=== PATIENT | female | born 1935 | race Two or more races ===

== ENCOUNTER 2017-06-22 16:55 | Observation (INO) | payer MEDICARE, MEDICAID ==
[~2017-06-22] VITALS: Ht 165.1 cm; Wt 61.7 kg
[2017-06-22] MEDS ORDERED: NS 500ML ONE (17:07)
[2017-06-22] MEDS ORDERED: Tubing Blood Filter IV ONE (17:07)
[2017-06-22 17:30] VITALS: BP 133/70
[2017-06-22] MEDS ORDERED: Bisacodyl EC 5mg tab ORAL ONE (19:00)
[2017-06-22 19:02] LABS: HEMATOCRIT 16.9 % (37.0-47.0); MEAN CORPUSCULAR VOLUME 59 FL (80-99); PLATELET COUNT 371 K/UL (150-450); RED BLOOD COUNT 2.84 M/UL (4.20-5.40); RED CELL DISTRIBUTION WIDTH 15.7 % (11.6-14.8); WHITE BLOOD COUNT 6.1 K/UL (4.8-10.8)
[2017-06-22 19:09] LABS: ANION GAP 7 mmol/L (5-15); BLOOD UREA NITROGEN 21 mg/dL (7-18); CALCIUM 8.5 MG/DL (8.5-10.1); CARBON DIOXIDE 27 MMOL/L (21-32); CHLORIDE 105 MMOL/L (98-107); CREATININE 0.5 MG/DL (0.55-1.30); SODIUM 139 MMOL/L (136-145)
[2017-06-22 19:13] LABS: HEMOGLOBIN 4.5 G/DL (12.0-16.0)
[2017-06-22 19:21] LABS: ALANINE AMINOTRANSFERASE 23 U/L (12-78); ALBUMIN 3.2 G/DL (3.4-5.0); ALKALINE PHOSPHATASE 56 U/L (46-116); ASPARTATE AMINO TRANSFERASE 21 U/L (15-37); BILIRUBIN,DIRECT 0.1 MG/DL (0.0-0.3); BILIRUBIN,TOTAL 0.2 MG/DL (0.2-1.0)
[2017-06-22 20:00] VITALS: BP 123/72
[2017-06-23] VITALS: BP 133/65
[2017-06-23] MEDS ORDERED: Nulytely 4L ORAL ONE (08:00)
[2017-06-23] MEDS ORDERED: Sorbitol Solution UD 30ml ORAL ONE (08:00)
[2017-06-23 08:13] VITALS: BP 153/88
[2017-06-23] MEDS: Imdur 30mg tab ORAL SCH (09:50)
[2017-06-23 11:45] VITALS: BP 173/78
[2017-06-23] MEDS ORDERED: Bisacodyl EC 5mg tab ORAL ONE (12:00)
[2017-06-23 15:40] VITALS: BP 147/79
--- NOTE | 2017-06-23 16:23 | Cardiology Report ---
APPROVED REPORT EKG Measurement Heart [id number] Normal sinus rhythm Normal ECG
[2017-06-23 19:54] LABS: HEMATOCRIT 24.9 % (37.0-47.0); HEMOGLOBIN 7.6 G/DL (12.0-16.0); MEAN CORPUSCULAR VOLUME 66 FL (80-99); PLATELET COUNT 335 K/UL (150-450); RED BLOOD COUNT 3.76 M/UL (4.20-5.40); RED CELL DISTRIBUTION WIDTH 23.7 % (11.6-14.8)
[2017-06-23 20:00] VITALS: BP 143/85
--- NOTE | 2017-06-23 20:28 | General Progress Note ---
Assessment/Plan Assessment/Plan GI CONSULT Dictated EGD/Colon at 0700 Thank you Iam Floyd MD Subjective Allergies: Coded Allergies: No Known Allergies (Unverified , 06/22/17) Objective Last 24 Hour Vital Signs Date Time Temp Pulse Resp B/P (MAP) Pulse Ox O2 Delivery O2 Flow Rate FiO2 06/23/17 15:40 97.9 69 18 147/79 99 97.9 06/23/17 11:45 96.4 64 18 173/78 98 96.4 06/23/17 09:50 153/88 06/23/17 08:13 98.1 77 17 153/88 98.1 06/23/17 00:00 98.2 75 16 133/65 96 98.2 Intake and Output 06/22/17 06/23/17 19:00 07:00 Intake Total 700 ml Balance 700 ml Blood Product 700 ml # Voids 1 Laboratory Tests 06/23/17 19:40: White Blood Count 6.0, Red Blood Count 3.76L, Hemoglobin 7.6#L, Hematocrit 24.9# L, Mean Corpuscular Volume 66#L, Mean Corpuscular Hemoglobin 20.3L, Mean Corpuscular Hemoglobin Concent 30.7L, Red Cell Distribution Width 23.7H, Platelet Count 335, Mean Platelet Volume 5.6L, Neutrophils (%) (Auto) , Lymphocytes (%) (Auto) , Monocytes (%) (Auto) , Eosinophils (%) (Auto) , Basophils (%) (Auto) , Neutrophils % (Manual) [Pending], Lymphocytes % (Manual) [Pending], Platelet Estimate [Pending], Platelet Morphology [Pending] Height (Feet): 5 Height (Inches): 1.00 Weight (Pounds): 136 IAM FLOYD Jun 23, 2017 20:27
[2017-06-23] MEDS ORDERED: Iron Sucrose 100 MG in NS 55 ML IV SCH (22:00)
[2017-06-24] VITALS (10 sets, daily range): BP systolic 116–150; BP diastolic 57–82
--- NOTE | 2017-06-24 00:30 | Consultation ---
DATE OF CONSULTATION: 06/23/2017 GASTROENTEROLOGY CONSULTATION CONSULTING PHYSICIAN: Iam Floyd M.D. REFERRING PHYSICIAN: Moe Coley M.D. CHIEF COMPLAINT: I was asked to see this patient for evaluation of anemia. HISTORY OF PRESENT ILLNESS: The patient is a pleasant 81-year-old woman who was referred to the hospital due to severe symptomatic anemia. The patient had a hemoglobin of 4.5 with MCV of 59. She is being transfused and her blood levels are better today. She denies any abdominal pain, nausea, vomiting, diarrhea, constipation, heartburn, hematochezia, melena, or other gastrointestinal symptomatology. She has not had an endoscopy or colonoscopy for evaluation. PAST MEDICAL HISTORY: Otherwise unremarkable per the patient, although medication list includes Imdur. MEDICATIONS: See the chart list for details. ALLERGIES: None. FAMILY HISTORY: Negative for gastrointestinal malignancies. SOCIAL HISTORY: The patient does not smoke or drink alcohol. REVIEW OF SYSTEMS: Otherwise negative. PHYSICAL EXAMINATION: GENERAL: Pleasant woman, seen in her room. HEENT: Normocephalic and atraumatic. Sclerae anicteric. Oropharynx clear. NECK: Supple. CHEST: Clear to auscultation. CARDIOVASCULAR: Revealed regular rate. ABDOMEN: Soft. Good bowel sounds. EXTREMITIES: Revealed no edema. NEUROLOGIC: Nonfocal. LABORATORY AND DIAGNOSTIC DATA: Laboratory data were noted. ASSESSMENT: This patient presents with severe microcytic anemia without any significant gastrointestinal tract symptomatology. Differential diagnosis for this type of presentation would typically include silent causes for chronic blood loss or inflammation of the GI tract versus a large hiatal hernia of the stomach. She is to be evaluated with lower and upper endoscopy. For the time being, I would transfuse the patient and give iron infusions as well. Indications, risks, alternatives, and possible complications of endoscopy and colonoscopy were explained to the patient and informed consent was obtained. RECOMMENDATIONS: 1. Clear liquid diet. 2. GI tract preparation. 3. Iron infusions. 4. Transfuse as needed. 5. Endoscopy and colonoscopy tomorrow. Thank you for asking me to participate in the care of this patient. Iam Floyd M.D. DR: EDENILSON JOB#: [id number] CC: CHANG
--- NOTE | 2017-06-24 01:45 | Progress Note ---
DATE: 06/23/2017 INTERNAL MEDICINE PROGRESS NOTE SUBJECTIVE: The patient has not had any chest pain or shortness of breath. She is status post 2 units packed red blood cells. Her hemoglobin level on admission was 4.5, today it is 7.6. OBJECTIVE: VITAL SIGNS: Blood pressure 135/60 range to 170/90, heart rate 78, respiratory rate 18 and she is afebrile. LUNGS: Clear. CARDIAC: Regular. Normal S1 and S2 with a 1/6 systolic murmur at base. ABDOMEN: Soft and nontender. No masses. No ascites. EXTREMITIES: With nonpitting dependent edema. IMPRESSION: 1. Microcytic anemia. 2. Severe iron deficiency. 3. Mild protein-calorie malnutrition. 4. Possible chronic GI bleeding. 5. Atherosclerotic and hypertensive heart disease. PLAN: Bowel prep for colonoscopy. Intravenous iron. Continued observation. Nasal oxygen. Serial hemoglobin. Continue to hold aspirin and avoid all nonsteroidal drugs as well as anticoagulants. DVT prophylaxis with SCDs. Follow up results of CEA level. Moe Coley M.D. DR: EDEL JOB#: [id number] CC:
--- NOTE | 2017-06-24 02:15 | History and Physical Report ---
DATE OF ADMISSION: 06/22/2017 REASON FOR ADMISSION: Severe anemia. 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 She was evaluated for weakness and some decreasing exercise capacity due to shortness of breath and was noted to have hemoglobin level around 5. The test was repeated and hemoglobin of 4.8 was obtained with severe microcytic indices. Associated iron panel revealed a total iron level of only 5 with a saturation estimate of 1%. The patient was sent to the hospital for observation and transfusions as well as assessment for further bleeding. PAST MEDICAL HISTORY: Atherosclerotic cardiovascular disease, chronic stable angina, osteoarthritis, degenerative disk disease, hypertension, hyperlipidemia, and peripheral neuropathy. MEDICATIONS: Prior to admission, reviewed and reconciled. ALLERGIES: None known. SOCIAL HISTORY: No record of smoking, alcohol, or substance abuse. FAMILY HISTORY: Noncontributory. REVIEW OF SYSTEMS: She does take a daily aspirin tablet. She takes an occasional nonsteroidal drugs for arthritic pain. She has noted occasional dark black stools for several months. She has not had any exertional chest pain, but has noted shortness of breath with decreased activity as well as some leg swelling. There is no history of diabetes or thyroid disorder. No history of seizure or stroke. She is on anti-lipid drugs. Her most recent echocardiogram revealed normal ejection fraction, concentric hypertrophy, and mild degenerative valve disease. There is no history of asthma or blood clotting in the legs. There is no known history of colon cancer or peptic ulcer disease. PHYSICAL EXAMINATION: GENERAL: Appears well for her age, in no acute distress. VITAL SIGNS: Blood pressure 133/70, heart rate 84, respiratory rate 18, and afebrile. HEENT: Normocephalic and atraumatic. Conjunctiva pallor. Oropharynx clear. NECK: Supple. Jugular venous pressure normal. LUNGS: Clear. BREASTS: Without discrete masses. CARDIAC: Regular rhythm and rate. Normal S1, S2 with a 1/6 systolic murmur at base. ABDOMEN: Soft, nontender. No guarding, rebound, or masses. EXTREMITIES: With 1+ nonpitting edema. NEUROLOGIC: Nonfocal. LABORATORY DATA: White count 6.1, hemoglobin 4.5, and MCV 59. BUN 21, creatinine 0.5, bicarbonate 27, sodium 139, and potassium 4.0. Albumin is 3.2. TSH is 3.3. IMPRESSION: 1. Severe microcytic anemia. 2. Severe iron deficiency. 3. Possible gastrointestinal bleeding. 4. Atherosclerotic cardiovascular disease with stable angina. 5. Hypertensive heart disease with controlled blood pressure at present. 6. Osteoarthritis. 7. Dyspnea, likely due to severe anemia. PLAN: 1. Transfuse two units of packed red blood cells to hemoglobin level above 7.5. 2. Stool occult blood test. 3. IV iron. 4. Gastrointestinal evaluation for possible panendoscopy. 5. Hold aspirin and nonsteroidal drugs. Moe Coley M.D. DR: Rc JOB#: [id number] CC:
[2017-06-24] MEDS ORDERED: DiphenhydrAMINE 50mg/ml Inj IVP PRN (07:00)
[2017-06-24] MEDS ORDERED: Propofol 200mg/20ml IV ONE (07:00)
[2017-06-24] MEDS ORDERED: Atropine Inj 1mg/10ml Syr IV PRN (07:00)
[2017-06-24] MEDS ORDERED: Midazolam 2mg/2ml Inj IVP PRN (07:00)
[2017-06-24] MEDS ORDERED: fentaNYL 100 mcg/2 mL IV PRN (07:00)
[2017-06-24] MEDS ORDERED: Glycopyrrolate 0.2mg/ml 1ml Vial ONE (07:00)
[2017-06-24] MEDS ORDERED: Lidocaine 1% MPF 10mg/ml 5ml ONE (07:00)
--- NOTE | 2017-06-24 07:00 | Anethesia Preoperative Eval ---
Anesthesia Pre-op PMH/ROS General Date of Evaluation: Jun 24, 2017 Time of Evaluation: 06:54 Anesthesiologist: moe ASA Score: ASA 3 Mallampati Score Class I : Soft palate, uvula, fauces, pillars visible Class II: Soft palate, uvula, fauces visible Class III: Soft palate, base of uvula visible Class IV: Only hard plate visible Mallampati Classification: Class II Surgeon: ghazala Diagnosis: severe anemia Surgical Procedure: egd/colonoscopy Anesthesia History: none Family History: no anesthesia problems Allergies: Coded Allergies: No Known Allergies (Unverified , 06/22/17) Medications: see eMAR Past Medical History Gastrointestinal/Genitourinary: Reports: GERD Anesthesia Pre-op Phys. Exam Physician Exam Last Vital Signs Date Time Temp Pulse Resp B/P (MAP) Pulse Ox O2 Delivery O2 Flow Rate FiO2 06/24/17 04:00 98.2 66 15 143/66 95 98.2 Constitutional: NAD Neurologic: CN 2-12 intact Cardiovascular: RRR Respiratory: CTA Gastrointestinal: S/NT/ND Airway Exam Mallampati Score: Class II MO: full Neck: short TMD: 2fb ROM: limited Teeth: intact Anesthesia Pre-op A/P Labs Hematology Test 06/23/17 19:40 White Blood Count 6.0 K/UL (4.8-10.8) Red Blood Count 3.76 M/UL (4.20-5.40) L Hemoglobin 7.6 G/DL (12.0-16.0) #L Hematocrit 24.9 % (37.0-47.0) #L Mean Corpuscular Volume 66 FL (80-99) #L Mean Corpuscular Hemoglobin 20.3 PG (27.0-31.0) L Mean Corpuscular Hemoglobin Concent 30.7 G/DL (32.0-36.0) L Red Cell Distribution Width 23.7 % (11.6-14.8) H Platelet Count 335 K/UL (150-450) Mean Platelet Volume 5.6 FL (6.5-10.1) L Neutrophils (%) (Auto) % (45.0-75.0) Lymphocytes (%) (Auto) % (20.0-45.0) Monocytes (%) (Auto) % (1.0-10.0) Eosinophils (%) (Auto) % (0.0-3.0) Basophils (%) (Auto) % (0.0-2.0) Differential Total Cells Counted 100 Neutrophils % (Manual) 43 % (45-75) L Lymphocytes % (Manual) 36 % (20-45) Monocytes % (Manual) 9 % (1-10) Eosinophils % (Manual) 8 % (0-3) H Basophils % (Manual) 3 % (0-2) H Band Neutrophils 1 % (0-8) Platelet Estimate Adequate Platelet Morphology Normal Polychromasia 1+ Hypochromasia 3+ Anisocytosis 3+ Microcytosis 3+ Studies Pre-op Studies: EKG - nsr Risk Assessment & Plan Assessment: asa3 Plan: mac Status Change Before Surgery: No Pre-Antibiotics Drug: SARAI Arzola Jun 24, 2017 07:00
[2017-06-24] MEDS ORDERED: NS 500ML IV ONE (07:01)
--- NOTE | 2017-06-24 07:04 | Pre-Procedure Note/Attestation ---
Pre-Procedure Note/Attestation Complete Prior to Procedure Planned Procedure: not applicable Procedure Narrative: egd/colon Indications for Procedure Pre-Operative Diagnosis: anemia Attestation I attest that I discussed the nature of the procedure; its benefits; risks and complications; and alternatives (and the risks and benefits of such alternatives ), prior to the procedure, with the patient (or the patient's legal airline security representative). I attest that, if there was a reasonable possibility of needing a blood transfusion, the patient (or the patient's legal airline security representative) was given the [facility] standardized written summary, pursuant to the Eric Captiva Blood Safety Act ([place] Health and Safety Code # 1645, as amended). I attest that I re-evaluated the patient just prior to the surgery and that there has been no change in the patient's H&P, except as documented below: STACEY PANTOJA Jun 24, 2017 07:04
--- NOTE | 2017-06-24 08:06 | General Progress Note ---
Assessment/Plan Assessment/Plan Assessment - Severe compensated microcytic anemia Recommendations - EGD/Colon today FINDINGS EGD: 10 cm Hiatal hernia, possible cause for anemia Colon: - mod sigmoid diverticulosis - few shallow apthous erosions in terminal ileum, biopsied (another possible cause for anemia) Recommendations: - resume po - IV Fe --> PO Fe after d/c - d/c planning - Outpatient GI follow up. Subjective Allergies: Coded Allergies: No Known Allergies (Unverified , 06/22/17) Subjective Feels OK (+) BM with prep NPO for EGD/Colon Objective Last 24 Hour Vital Signs Date Time Temp Pulse Resp B/P (MAP) Pulse Ox O2 Delivery O2 Flow Rate FiO2 06/24/17 04:00 98.2 66 15 143/66 95 98.2 06/24/17 00:00 97.7 63 15 128/67 95 97.7 06/23/17 20:00 98.0 75 16 143/85 95 98.0 06/23/17 15:40 97.9 69 18 147/79 99 97.9 06/23/17 11:45 96.4 64 18 173/78 98 96.4 06/23/17 09:50 153/88 06/23/17 08:13 98.1 77 17 153/88 98.1 Intake and Output 06/23/17 06/24/17 19:00 07:00 Intake Total 1220 ml 60 ml Balance 1220 ml 60 ml Intake Oral 1220 ml IV Total 60 ml # Voids 2 3 # Bowel Movements 3 1 Laboratory Tests 06/23/17 19:40: White Blood Count 6.0, Red Blood Count 3.76L, Hemoglobin 7.6#L, Hematocrit 24.9# L, Mean Corpuscular Volume 66#L, Mean Corpuscular Hemoglobin 20.3L, Mean Corpuscular Hemoglobin Concent 30.7L, Red Cell Distribution Width 23.7H, Platelet Count 335, Mean Platelet Volume 5.6L, Neutrophils (%) (Auto) , Lymphocytes (%) (Auto) , Monocytes (%) (Auto) , Eosinophils (%) (Auto) , Basophils (%) (Auto) , Differential Total Cells Counted 100, Neutrophils % ( Manual) 43L, Lymphocytes % (Manual) 36, Monocytes % (Manual) 9, Eosinophils % ( Manual) 8H, Basophils % (Manual) 3H, Band Neutrophils 1, Platelet Estimate Adequate, Platelet Morphology Normal, Polychromasia 1+, Hypochromasia 3+, Anisocytosis 3+, Microcytosis 3+ Height (Feet): 5 Height (Inches): 5.00 Weight (Pounds): 136 Objective WDWN NCAT supple CTA RRR Soft ND NT no edema non focal STACEY PANTOJA Jun 24, 2017 08:06
[2017-06-24] MEDS: Imdur 30mg tab ORAL SCH (09:09)
--- NOTE | 2017-06-24 09:10 | Immediate Post-Op Evaluation ---
Immediate Post-Op Evalulation Immediate Post-Op Evalulation Procedure: egd/colonoscopy Date of Evaluation: Jun 24, 2017 Time of Evaluation: 08:17 IV Fluids: 500ml Blood Products: none Estimated Blood Loss: negligible Blood Pressure Systolic: 130 Blood Pressure Diastolic: 67 Pulse Rate: 64 Respiratory Rate: 18 O2 Sat by Pulse Oximetry: 100 Temperature (Fahrenheit): 98.2 Pain Score (1-10): 0 Nausea: No Vomiting: No Complications none Patient Status: awake, reacts, patent Hydration Status: adequate Drug: SARAI Arzola Jun 24, 2017 09:10
--- NOTE | 2017-06-24 09:36 | Endoscopy Procedure Note ---
Endoscopy Procedure Note General Indication for Procedure: anemia Procedures Performed: EGD, colonoscopy Operative Findings/Diagnosis: see prog note Specimen: yes Pt Tolerated Procedure Well: Yes Estimated Blood Loss: none Anesthesia Anesthesiologist: Dr Branden pulido Anesthesia: MAC Medications Medication Given: see anesthesia record Inserted Devices Implant(s) used?: No Quality Quality of Bowel Preparation: Excellent GI Core Measures 50 yrs or older w/o bx or poly: Not Applicable 10yrs. F/U not recommended: Not Applicable If not recommended, why?: STACEY PANTOJA Jun 24, 2017 09:35
--- NOTE | 2017-06-24 09:39 | Brief Operative Note ---
Immediate Post Operative Note Operative Note Chief Complaint: anemia Pre-op Diagnosis: anemia Procedure: e/c Post-op Diagnosis: see notes Surgeon: ghazala Anesthesiologist: Branden lowe Anesthesia: moderate sedation Specimen: yes Complications: none Condition: stable Fluids: recorded Estimated Blood Loss: none Drains: none Implant(s) used?: No STACEY PANTOJA Jun 24, 2017 09:39
--- NOTE | 2017-06-24 13:15 | 48 Hour Post Anesthesia Eval ---
Post Anesthesia Evaluation Procedure: egd/colonoscopy Date of Evaluation: Jun 24, 2017 Time of Evaluation: 08:19 Blood Pressure Systolic: 133 0: 66 Pulse Rate: 66 Respiratory Rate: 18 Temperature (Fahrenheit): 98.2 O2 Sat by Pulse Oximetry: 100 Airway: patent Nausea: No Vomiting: No Pain Intensity: 0 Hydration Status: adequate Cardiopulmonary Status: stable Mental Status/LOC: patient returned to baseline Post-Anesthesia Complications: none Follow-up care needed: N/A SARAI NOEL Jun 24, 2017 13:15
[2017-06-24] MEDS ORDERED: Tubing IV Secondary IV ONE (19:29)
--- NOTE | 2017-06-25 03:45 | Progress Note ---
DATE: 06/24/2017 CARDIOLOGY AND INTERNAL MEDICINE PROGRESS NOTE SUBJECTIVE: The patient is status post panendoscopy. Large hiatal hernia noted as well as erosions in the small bowel. Biopsies were taken. No active bleeding noted. OBJECTIVE: VITAL SIGNS: Blood pressure is 116/73, pulse 63, respiratory rate 18, and oxygen saturation 95% room air. LUNGS: Clear. CARDIAC: Regular. ABDOMEN: Slightly distended, but soft and nontender. EXTREMITIES: No edema. NEUROLOGIC: Nonfocal. IMPRESSION: 1. Severe iron deficiency with anemia, status post 2 units of packed red blood cells with no signs of active bleeding at this time. 2. Small bowel erosions of unclear significance. 3. Hiatal hernia, asymptomatic. 4. Atherosclerotic cardiovascular disease with stable angina. PLAN: Continue iron replacement transitioning from IV to oral route upon discharge. Follow up biopsy results. Continue to monitor stool occult blood studies as outpatient and hemoglobin levels. Moe Coley M.D. DR: Rc JOB#: [id number] CC:
--- NOTE | 2017-06-25 05:45 | Procedure Note ---
DATE OF PROCEDURE: 06/24/2017 PROCEDURE: Upper gastrointestinal endoscopy with biopsy as well as colonoscopy with biopsy. SURGEON: Iam Floyd M.D. ANESTHESIA: Please see the separate anesthesiologist notes for details. PRE-ENDOSCOPIC DIAGNOSIS: Anemia. POST-ENDOSCOPIC DIAGNOSES: 1. A 10 cm hiatal hernia. 2. Status post random biopsies of the duodenum and the stomach. 3. No evidence of colonic polyps or masses. 4. Multiple shallow and small terminal ileum erosions were identified up to about 15 cm and these were biopsied. DESCRIPTION OF PROCEDURE: The procedure, its risks, indications, alternatives, and possible complications were explained to the patient and informed consent was obtained. The patient was then sedated. A diagnostic upper endoscope was introduced into the oropharynx and advanced to the duodenum. The endoscope was then gradually withdrawn and the mucosa examined carefully. The colonoscope was introduced into the rectum and advanced to about 15 cm into the terminal ileum. The colonoscope was then gradually withdrawn and the mucosa examined carefully. Examination of the upper and lower gastrointestinal tract revealed the findings listed above. Biopsies were sent to pathology for review. No cancers or masses were identified. The colonoscope was removed. The patient was sent to recovery in good condition. COMPLICATIONS: None. ASSESSMENT: This examination was notable for 10 cm hiatal hernia and some erosions in the terminal ileum, both of which could explain the patient's significant iron-deficiency anemia. The former is associated with longstanding blood loss from Akbar ulcers and can typically cause longstanding anemia. The latter may be a form of inflammatory bowel disease, which will have to be further investigated in this patient. For the time being, the patient can be discharged and given iron supplementation. She will follow up as an outpatient with results and if Helicobacter pylori is positive, this should be treated. RECOMMENDATIONS: Per above discussion and per orders written in the chart. Thank you for allowing me to participate in the care of this patient. Iam Floyd M.D. DR: EDENILSON JOB#: [id number] CC: CHANG
--- NOTE | 2017-07-02 17:42 | Discharge Summary ---
Discharge Summary Discharge Summary Discharge Summary DATE OF ADMISSION: 06/22/2017 DATE OF DISCHARGE: 06/24/2017 CONSULTANTS:Dr. 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 Total iron of 5 and saturation of 1%. She was sent to the hospital for observation and for blood transfusion. She received 2 units packed RBC blood transfusion. She underwent GI evaluation. On 06/24/2017 she underwent endoscopy by Dr. Floyd. Findings showed a 10 cm had total hernia, there was no evidence of colonic polyp or mass, there was multiple shallow and small terminal ileum erosions. Pathology results showed benign bowel mucosa, negative for H. pylori. There was no sign of active bleed. Diet was advanced. She was eventually discharged home. FINAL DIAGNOSES: Severe iron deficiency anemia status post 2 units packed RBC blood transfusion with no active signs of bleeding Small bowel erosion Hiatal hernia asymptomatic Atherosclerotic cardiovascular disease with stable angina status post EGD and colonoscopy DISPOSITION: Patient was discharged home DISCHARGE INSTRUCTIONS: Follow up in a week. I have been assigned to dictate discharge summary on this account, and I was not involved in the patient's management. Elzbieta Emmanuel NP Jul 02, 2017 17:42
== END 2017-06-24 19:30 | disposition home or self-care (01) ==
LOC: 4W 17:06
DX: D50.9 Iron deficiency anemia, unspecified (principal); K44.9 Diaphragmatic hernia without obstruction or gangrene; K29.50 Unspecified chronic gastritis without bleeding; I25.119 Atherosclerotic heart disease of native coronary artery with unspecified angina pectoris; I11.9 Hypertensive heart disease without heart failure; M19.90 Unspecified osteoarthritis, unspecified site; K21.9 Gastro-esophageal reflux disease without esophagitis; E44.1 Mild protein-calorie malnutrition; K57.30 Diverticulosis of large intestine without perforation or abscess without bleeding
CPT/HCPCS: 36415 ×2; 43239; 45380; 80048; 80076; 82378; 84443; 85007 ×2; 85025 ×2; 86850; 86900; 86901; 86920; 93005; G0378 ×2; J1756; J2704; J7040 ×2; P9016 ×2; 94003; 94150

== ENCOUNTER → 2017-07-13 | Outpatient (CLI) | payer MEDICARE, OTHER ==
--- NOTE | 2017-07-13 17:44 | Diagnostic Imaging Report ---
Indication: COUGH Technique: XRAY Chest 2v Comparison: None Findings: Heart size within normal limits. Atherosclerotic calcifications noted in the aorta. There is a moderate to large size hiatal hernia with a gas bubble projecting just posterior to the heart. There is no focal airspace consolidation to suggest pneumonia. No pleural effusion or pneumothorax. There is osteopenia and mild degenerative change of the spine. No acute osseous abnormality is seen. IMPRESSION: Moderate to large hiatal hernia. No focal airspace consolidation, pleural effusion or pneumothorax.
== END | disposition home or self-care (01) ==
LOC: RAD 11:31
DX: R05 Cough (principal); K44.9 Diaphragmatic hernia without obstruction or gangrene; M85.80 Other specified disorders of bone density and structure, unspecified site
CPT/HCPCS: 71046

== ENCOUNTER 2018-04-14 15:07 | Outpatient (CLI) | payer MEDICARE, MEDICAID ==
--- NOTE | 2018-04-14 15:53 | Diagnostic Imaging Report ---
Indication: Headache Technique: Contiguous 5 mm thick transaxial imaging of the head obtained in a Siemens Sensation [address] scanner. Soft tissue and bone windows generated. Automatic Exposure Control was utilized. Total Dose length Product (DLP): 1344.[address] Dose Index Volume (CTDIvol): 70.38 mGy Comparison: none Findings: There is moderate prominence of the ventricles, basal cisterns, and cerebral sulci consistent with atrophy. Moderate, nonspecific, white matter hypoattenuation is noted throughout the brain consistent with chronic small vessel disease. There is no midline shift, edema, acute hemorrhage, mass effect, or abnormal extra-axial fluid collections. There is a less than 1 cm lucent defect within the left frontal calvarium, nonspecific in nature. This would probably not be visible by bone scan. Consider further evaluation, clinical correlation and recommend follow-up. Impression: No acute intracranial bleed, mass effect or edema. Moderate atrophy of the brain. Evidence of chronic small vessel disease involving white matter tracts. Small lucent defect left frontal calvarium, nonspecific. Please correlate clinically. Further evaluation may be needed. The CT scanner at [facility] is accredited by the [employer] and the scans are performed using dose optimization techniques as appropriate to a performed exam including Automatic Exposure control.
== END 2018-04-14 17:07 | disposition home or self-care (01) ==
LOC: CAT 15:07
DX: R51 Headache (principal); R41.82 Altered mental status, unspecified
CPT/HCPCS: 70450

== ENCOUNTER 2018-10-17 14:47 | Inpatient (IN) | payer MEDICARE, OTHER ==
[~2018-10-17] VITALS: Ht 154.9 cm; Wt 56.7 kg
--- NOTE | 2018-10-17 15:10 | NUR ---
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 patient is alert awake x4 ambulatory with assistance. patient placed on head of precision targeting.
[2018-10-17] MEDS ORDERED: ISOSORBIDE MONO60 M1 PO (15:21)
[2018-10-17] MEDS ORDERED: VITAMIN D1000 UNI1 ORAL (15:21)
[2018-10-17] MEDS ORDERED: VITAMIN C500 M1 ORAL (15:21)
[2018-10-17] MEDS ORDERED: DONEPEZIL HCL10 M2 ORAL (15:21)
[2018-10-17] MEDS ORDERED: GINKGO BILOBA120 M1 PO (15:21)
[2018-10-17] MEDS ORDERED: IRON325 M1 PO (15:21)
[2018-10-17] MEDS ORDERED: GLUCOSAMINE CH1 EAC8 PO (15:21)
[2018-10-17] MEDS ORDERED: OYSTER SHELL 51 EAC1 PO (15:21)
[2018-10-17 15:27] VITALS: BP 132/65
--- NOTE | 2018-10-17 15:43 | Emergency Room Report ---
History of Present Illness General Chief Complaint: Headache Source: Patient Present Illness HPI Disclaimer: Please note that this report is being documented using DRAGON technology. This can lead to erroneous entry secondary to incorrect interpretation by the dictating instrument. HPI: 82-year-old Primarily Estonian-speaking female with a history of hypertension, hyperlipidemia, osteoarthritis and stable angina presented for evaluation of headache, double vision and lightheadedness. Symptoms began abruptly this morning with a sudden headache over the right temporal and occipital region. She noted double vision and lightheadedness. There was no head injury or loss of consciousness. She does not take anticoagulants. Headache has persisted throughout the day as her is her lightheadedness. Double vision waxes and wanes. No prior history of stroke or intracranial hemorrhage. She was in her usual state of health when she woke up this morning. She denies any recent fever, chills, neck or back pain, rash, chest pain, shortness of breath, abdominal pain, vomiting, diarrhea, dysuria, hematuria or other change in her health. PMH: Hypertension, hyperlipidemia, stable angina PSH: Denies Allergies: Denies Social Hx: Denies tobacco, alcohol or drug use Allergies: Coded Allergies: No Known Allergies (Unverified , 06/22/17) Nursing Documentation-PMH Past Medical History: No Stated History Review of Systems All Other Systems: negative except mentioned in HPI Physical Exam Vital Signs Date Time Temp Pulse Resp B/P (MAP) Pulse Ox O2 Delivery O2 Flow Rate FiO2 10/17/18 15:04 98.1 50 17 147/74 (98) 98 Room Air General: Awake and alert, no acute distress HEENT: NC/AT. EOMI. PERRLA. Pupils 4 mm and reactive. Visual hightower are full. Hearing is diminished bilaterally. Facial expressions are symmetrical. Neck: Supple, trachea midline Chest Wall: No tenderness, no deformity Cardiovascular: Bradycardic, lowest heart rate 40 bpm.. S1 and S2 normal. No murmur appreciated Resp: Normal work of breathing. No cough, wheezing or crackles appreciated Abdomen: Abdomen is soft, nondistended. Nontender Skin: Intact. No abrasions, laceration or rash over the exposed skin MSK: Normal tone and bulk. Moving all extremities. No obvious deformity. Neuro: Awake and alert. Mentating appropriately. Facial depressions are symmetrical. Moving all extremities. No ataxia. Strength is 5/5 in the upper and lower extremities. Good attention, concentration. No dysarthria. No aphasia. Medical Decision Making Diagnostic Impression: Primary Impression: Bradycardia with 31-40 beats per minute Additional Impression: Headache ER Course 82-year-old female presents for evaluation of sudden onset headache, double vision and lightheadedness this morning. Her symptoms regarding her headache appear to be improving however states it was sudden and severe this morning but is slowly gotten better throughout the day. She has intermittent blurred vision and lightheadedness. She appears to be very bradycardic with the lowest reported heart rate in the mid 30s. No prior history of bradycardia. She is denying any chest pain, recent illness or other change in her health aside from her headache and visual changes and lightheadedness today. We will start broad work-up with head CT, EKG, labs including coagulation studies. Vital signs aside from the bradycardia are within normal limits. EKG Diagnostic Results EKG Time: 15:38 Rate: bradycardiac Rhythm: NSR Other Impression Sinus bradycardia, normal intervals, normal axis, no acute ischemic changes. Rhythm Strip Diag. Results Rhythm Strip Time: 15:38 EP Interpretation: yes Rate: 40s Other Impression Sinus bradycardia Chest X-Ray Diagnostic Results Chest X-Ray Diagnostic Results : # of Views/Limited/Complete: 1 View Indication: Other - Bradycardia Interpretation: no consolidation, no effusion, no pneumothorax Impression: No acute disease Electronically Signed by: Electronically signed by Dr. Connie Rodriguez CT/MRI/US Diagnostic Results CT/MRI/US Diagnostic Results : Impression [facility] Patient: LENNY SANTAMARIA (Female) Age: 82 MR #: [id number] Status: ER Date: 10/17/18 16:01 Slices: 0 History: PAIN Priors: Tech: Exam request generated by [employer] interface Exams: CT HEAD Without Contrast Referring Magdy: TATYANA^CONNIE Ordering Phy: Connie Rodriguez MD Contrast: Accession Numbers: [id number] Preliminary Findings Only See Final Report For Complete Findings CT HEAD Without Contrast: No acute intracranial process. Involutional changes with small vessel disease. Dystrophic calcification in the right occipital region. Cataract surgery. Radiologist: aDrryl Loving M.D. Study ready at 16:04 and initial results transmitted at 16:05 Reevaluation Time: 17:07 Last Vital Signs Date Time Temp Pulse Resp B/P (MAP) Pulse Ox O2 Delivery O2 Flow Rate FiO2 10/17/18 15:27 98.1 49 18 132/65 99 Room Air Reevaluation Impression CT scan of the head showed no acute intercranial process. Labs have returned largely within normal limits. The patient became more bradycardic with heart rate in the mid to low 30s. She remains symptomatic and lightheaded. She was given 0.5 mg atropine which increased her heart rate into the 60s. She is currently stable though given her significant bradycardia and symptomatology I believe she is not safe for transfer but will require admission to either telemetry at our facility. Discussed labs and imaging results with patient as well as plan for admission. She understands and agrees with this treatment plan Disposition: ADMITTED INPATIENT Condition: Improved Connie Rodriguez MD Oct 17, 2018 15:43
--- NOTE | 2018-10-17 15:56 | NUR ---
ED Nurse Note: patient came back from CT
--- NOTE | 2018-10-17 16:07 | Diagnostic Imaging Report ---
Indication: Headache Technique: Contiguous 5 mm thick transaxial imaging of the head obtained in a Siemens Sensation [address] scanner. Soft tissue and bone windows generated. Automatic Exposure Control was utilized. Total Dose length Product (DLP): 1347.[address] Dose Index Volume (CTDIvol): 70.38 mGy Comparison: 04/14/2018 Findings: There is mild prominence of the ventricles, basal cisterns, and cerebral sulci consistent with atrophy. Mild, nonspecific, white matter hypoattenuation is noted throughout the brain consistent with chronic small vessel disease. There is no midline shift, edema, acute hemorrhage, mass effect, or abnormal extra-axial fluid collections. Bones are unremarkable. Bilateral lens surgery noted. Impression: No acute intracranial bleed, mass effect or edema. Mild atrophy of the brain. Nonspecific white matter hypoattenuation probably due to chronic small vessel disease. [facility] has communicated the preliminary results to the Emergency Department. Their findings are largely concordant with this report. The CT scanner at [facility] is accredited by the [employer] and the scans are performed using dose optimization techniques as appropriate to a performed exam including Automatic Exposure control.
[2018-10-17 16:17] LABS: BASOPHILS % (AUTO) 1.5 % (0.0-2.0); EOSINOPHILS % (AUTO) 3.5 % (0.0-3.0); HEMATOCRIT 39.5 % (37.0-47.0); HEMOGLOBIN 13.6 G/DL (12.0-16.0); LYMPHOCYTES % (AUTO) 26.3 % (20.0-45.0); MEAN CORPUSCULAR VOLUME 92 FL (80-99); MONOCYTES % (AUTO) 7.3 % (1.0-10.0); NEUTROPHILS % (AUTO) 61.4 % (45.0-75.0); PLATELET COUNT 155 K/UL (150-450); RED BLOOD COUNT 4.32 M/UL (4.20-5.40); RED CELL DISTRIBUTION WIDTH 11.4 % (11.6-14.8); WHITE BLOOD COUNT 5.7 K/UL (4.8-10.8)
--- NOTE | 2018-10-17 16:21 | NUR ---
ED Nurse Note: HR went down to 35/min but asymptomatic. ERMD made aware.
[2018-10-17 16:30] LABS: ANION GAP 6 mmol/L (5-15); BLOOD UREA NITROGEN 16 mg/dL (7-18); CALCIUM 9.5 MG/DL (8.5-10.1); CARBON DIOXIDE 30 MMOL/L (21-32); CHLORIDE 104 MMOL/L (98-107); CREATININE 0.5 MG/DL (0.55-1.30); SODIUM 140 MMOL/L (136-145)
[2018-10-17] MEDS ORDERED: Atropine Inj 1mg/10ml Syr IVP ONE (16:30)
[2018-10-17] MEDS ORDERED: Atropine Sulfate 0.4mg/ml inj 20ML IVP ONE (16:30)
[2018-10-17 16:43] LABS: ALANINE AMINOTRANSFERASE 10 U/L (12-78); ALBUMIN 3.3 G/DL (3.4-5.0); ALKALINE PHOSPHATASE 46 U/L (46-116); ASPARTATE AMINO TRANSFERASE 17 U/L (15-37); BILIRUBIN,TOTAL 0.3 MG/DL (0.2-1.0); CKMB 1.6 NG/ML (0.0-3.6); CREATINE KINASE 71 U/L (26-308)
[2018-10-17 18:08] VITALS: BP 120/67
--- NOTE | 2018-10-17 19:23 | NUR ---
HAND-OFF: Report given to Mamie SALVADOR. patient is stable in bed. her friend by the bedside. Addendum: 10/17/18 at 1925 by DONELLO HAND-OFF: Report given to Inna SALVADOR. patient is stable in bed. her friend by the bedside. .
--- NOTE | 2018-10-17 19:30 | NUR ---
ED Nurse Note: report received from MODETSO Pitts and assumed care.
[2018-10-17 19:45] VITALS: BP 124/63
--- NOTE | 2018-10-17 20:23 | NUR ---
ED Nurse Note: report given to MODESTO Kim.
--- NOTE | 2018-10-17 20:45 | NUR ---
ED Nurse Note: pt transferred to tele, all belongings sent w/ pt w/ completed packet, vss, resp even and unlabored on RA, NSR on grinding room supervisor at this time. care endorsed to MODESTO Kim.
--- NOTE | 2018-10-17 20:48 | NUR ---
NURSE NOTES: Received report from ANDRES Carrasco RN. Patient was transferred to Telemetry unit from ER via [facility] without incident. No signs of acute distress noted; denies pain at this time. AOx4; able to make needs known. Primarily Mexican speaking. Checked IV site; patent and flushed. No erythema, bleeding, or infiltration noted. Patient put on Tele box; sinus rhythm on the monitor (70s). Belongings list checked with transferring RN. Bed at lowest position, brakes on, siderails up x3. Call light within reach. Will continue to monitor.
--- NOTE | 2018-10-17 21:28 | NUR ---
NURSE NOTES: Called Dr. Coley for admission orders. Awaiting callback.
[2018-10-17] MEDS ORDERED: Gadavist 7.5mMol/7.5ml vial IV PRN (23:00)
[2018-10-17] MEDS: Donepezil 10mg tab ORAL SCH (23:39)
[2018-10-17] MEDS: Aspirin Baby 81mg ORAL SCH (23:39)
[2018-10-18] VITALS: BP 108/60
[2018-10-18] MEDS: NS w/KCl 20mEq 1000ml 1,000 ML IV SCH ×2 (00:14→15:28)
--- NOTE | 2018-10-18 01:00 | History and Physical Report ---
DATE OF ADMISSION: 10/17/2018 REASON FOR ADMISSION: Bradycardia. HISTORY OF PRESENT ILLNESS: This is an 82-year-old female who [facility]. She sees me regularly at my office. She presented to the hospital emergency room complaining of double vision, lightheadedness, weakness, and headache. The symptoms began early this morning. There was no head trauma, falls, or loss of consciousness. The patient has not had any seizures or focal weakness. There have been no changes in her medication regimen. PAST MEDICAL HISTORY: Hiatal hernia, iron deficiency, gastritis, chronic kidney disease, cerebrovascular disease with dementia, dementia with confusion, hyperlipidemia, hypertension, and atherosclerotic cardiovascular disease. ALLERGIES: None. MEDICATIONS: Reviewed and reconciled. SOCIAL HISTORY: Negative for smoking, alcohol, or substance abuse. FAMILY HISTORY: Noncontributory. REVIEW OF SYSTEMS: No loss of vision. She is hard of hearing. No shortness of breath. No recent upper respiratory infection. No loss of consciousness. No falls. No chest pain or palpitations. No nausea, vomiting, or abdominal pain. No history of diabetes or thyroid disorder. She had severe iron deficiency anemia and underwent endoscopy last year with findings notable for mild gastritis and hiatal hernia. Her hemoglobin has been stabilized on iron replacement since that time. She does have episodes of confusion at night. PHYSICAL EXAMINATION: VITAL SIGNS: Afebrile. Blood pressure 141/74, pulse 50, and respirations 17. GENERAL: Temporal wasting. HEENT: Conjunctivae pink. Oropharynx clear. Pupils are equal, round, and reactive to light and accommodation. NECK: Jugular venous pressure normal. Carotid upstrokes without delay. No bruits. LUNGS: Clear. No breast masses. CARDIAC: Regular rhythm, slow rate. Normal S1, S2 with no murmur. ABDOMEN: Soft and nontender. EXTREMITIES: Without edema. NEUROLOGIC: Revealed no focal motor or sensory deficits. LABORATORY AND DIAGNOSTIC DATA: An outpatient echocardiogram revealed normal ejection fraction and mild degenerative valve disease. Chest x-ray with no acute process. EKG with sinus bradycardia in the 40s. Chemistry panel within normal limits. CT scan with diffuse white matter disease. White count 5.7, hemoglobin 13.2. Albumin 3.3. IMPRESSION: 1. Sinus node disease with bradycardia. 2. Mild protein-calorie malnutrition. 3. Cerebrovascular disease with dementia. 4. Tension headache. 5. Rule out vertebrobasilar insufficiency. PLAN: 1. Cardiac monitoring. 2. Hydration. 3. Carotid and vertebral duplex. 4. MRI of the brain. 5. We will determine indication for permanent pacemaker based on clinical course. Moe Coley M.D. DR: MARYSOL JOB#: [id number] CC:
[2018-10-18 04:00] VITALS: BP 109/73
--- NOTE | 2018-10-18 07:31 | NUR ---
HAND-OFF: Report given to MODESTO Cruz. Patient is awake lying high montes's eating breakfast. Family friend at bedside. In stable condition.
--- NOTE | 2018-10-18 07:39 | NUR ---
NURSE NOTES: Pt is in bed, having breakfast. Family friend at bedside. Pt on street sweeper, no signs of cardiac or respiratory distress at this time. IV on R AC 20g running NS w/potassium 20meq's @75ml/hr. Pt will have an MRI of brain and consent has been signed. Bed is locked and in lowest position. Call light within reach. Will continue plan of care.
[2018-10-18 08:00] VITALS: BP 133/65
[2018-10-18 08:41] LABS: ALANINE AMINOTRANSFERASE 8 U/L (12-78); ALBUMIN 3.3 G/DL (3.4-5.0); ALBUMIN/GLOBULIN RATIO 0.9 (1.0-2.7); ALKALINE PHOSPHATASE 46 U/L (46-116); ANION GAP 7 mmol/L (5-15); ASPARTATE AMINO TRANSFERASE 18 U/L (15-37); BILIRUBIN,TOTAL 0.5 MG/DL (0.2-1.0); BLOOD UREA NITROGEN 13 mg/dL (7-18); CALCIUM 9.2 MG/DL (8.5-10.1); CARBON DIOXIDE 26 MMOL/L (21-32); CHLORIDE 106 MMOL/L (98-107); CREATININE 0.6 MG/DL (0.55-1.30); SODIUM 139 MMOL/L (136-145)
[2018-10-18] MEDS: Aspirin Baby 81mg ORAL SCH (09:06)
[2018-10-18] MEDS: Vitamin D 1000 IU Tab ORAL SCH (09:06)
[2018-10-18] MEDS: Tums 500mg ORAL SCH ×3 (09:06→18:08)
[2018-10-18] MEDS: Heparin 5000 units/ml inj SUBQ SCH ×2 (09:09→21:25)
--- NOTE | 2018-10-18 09:24 | NUR ---
*-* NO INSURANCE INFORMATION ON THE BAR UNABLE TO SEND CLINICALS OR REVIEWS *-
--- NOTE | 2018-10-18 09:57 | NUR ---
MRI BRAIN W/WO COMPLETED.
--- NOTE | 2018-10-18 09:58 | NUR ---
NURSE NOTES: NOtified Dr. Coley about result from Head MRI (acute CVA) . Advised Melecio/lay to tell radiologist Brad to call back Dr. Coley.
--- NOTE | 2018-10-18 10:49 | Diagnostic Imaging Report ---
Indication: Acute onset Vertigo Technique: The head was imaged in a 1.5 Macie magnet. Sequences obtained include sagittal and axial T1 FLAIR, axial T2 fast spin echo with fat saturation, axial T2 FLAIR, diffusion and ADC map. Gadolinium-enhanced axial and coronal T1 FLAIR obtained also. Comparison: None On diffusion-weighted imaging, there are several small foci of diffusion restriction (0.2-0.9 cm) mostly within the left cerebellum but one focus along the right paramedian cerebellum. Findings consistent with acute CVA. The patchy distribution suggests infarcts at the small vessel arteriolar level. The basilar artery is patent with good flow void. There is no hemorrhage. Mild T1 hypointense/T2 hyperintense edema signal noted on other sequences. The occipital lobe and the remainder of the supratentorial brain demonstrates no involvement. There is motion related artifact. There is mild generalized atrophy of the brain involving the cerebellum and cerebrum. The basal cisterns are normal. There is no mass effect or midline shift. Corpus callosum, sella, osseous bone marrow signal appear normal. IMPRESSION: Multiple less than 1 cm acute infarcts (acute small vessel infarcts) involving the cerebellum mostly within the left cerebellar hemisphere with one focus on the right. No associated hemorrhage, significant edema or mass effect. Generalized atrophy of the brain. Critical value communication. Findings were discussed via telephone with Dr. Coley @10:30, 10/18/2018.
[2018-10-18 12:00] VITALS: BP 142/76
--- NOTE | 2018-10-18 12:13 | Cardiology Report ---
APPROVED REPORT EKG Measurement Heart [id number] Marked sinus bradycardia Abnormal ECG
--- NOTE | 2018-10-18 12:50 | Diagnostic Imaging Report ---
Indication: Chest pain Comparison: 07/13/2017 A single view chest radiograph was obtained. Findings: Lung volumes are low. Hiatal hernia noted. Myocardium is present. Bones are osteopenic. IMPRESSION: Hiatal hernia. No acute findings
--- NOTE | 2018-10-18 15:03 | NUR ---
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 98.0 HR 50 RR 17 B/P 147/[address]= NO ACUTE PROCESS MRI BRAIN= Multiple less than 1 cm acute infarcts (acute small vessel infarcts) involving the cerebellum mostly within the left cerebellar hemisphere with one focus on the right. No associated hemorrhage, significant edema or mass effect. CXR= NO ACUTE PROCESS IS: ATROPINE IV ADMITTED TO TELE @ 2044 TELE STATUS DCP PENDING HOSPITAL STAY
[2018-10-18 16:00] VITALS: BP 133/65
[2018-10-18 20:00] VITALS: BP 153/85
--- NOTE | 2018-10-18 20:30 | NUR ---
HAND-OFF: Report given Froilan/RN Pt in stable condition .
--- NOTE | 2018-10-18 20:35 | NUR ---
NURSE NOTES: Received report from Khadra Mckeon RN. Patient in bed AAO X3 with friend at bedside. No complaints of acute pain or distress at this time. Kept clean, dry, and comfortable in bed. monitoring analyst in place per protocol and on RA with no S/S of resp distress. Safety precautions in place; siderails X3 up, call light within reach, bed in lowest position, brakes and alarm on at all times. Needs and wants anticipated and attended. Will continue plan of care and monitor for any changes noted.
[2018-10-18] MEDS: Donepezil 10mg tab ORAL SCH (21:23)
[2018-10-19] VITALS: BP 130/73
--- NOTE | 2018-10-19 01:30 | Progress Note ---
DATE: 10/18/2018 INTERNAL MEDICINE AND CARDIOLOGY PROGRESS NOTE SUBJECTIVE: The patient feels slightly better, but still has dizziness and unsteadiness with gait. No new visual disturbances. The patient had an MRI of the brain revealing multiple acute foci and cerebellar infarct. Monitor reveals sinus and sinus bradycardia. PHYSICAL EXAMINATION: VITAL SIGNS: Blood pressure 142/76, pulse 49, respirations 15, afebrile. LUNGS: Clear. CARDIAC: Regular. Normal S1, S2 with a fourth heart sound. ABDOMEN: Soft. EXTREMITIES: No edema. Strength symmetric. NEUROLOGIC: Mentation at baseline. Gait not assessed. IMPRESSION: 1. Acute cerebellar cerebrovascular accident. 2. Sinus bradycardia. 3. History of hypertension. 4. Hiatal hernia. 5. Chronic gastritis. 6. History of iron deficiency. PLAN: 1. Antiplatelet therapy. 2. Check lipid panel. 3. Continue cardiac monitoring. 4. No acute indication for pacemaker. 5. DVT prophylaxis. 6. Bed rest for now. 7. Physical and occupational therapy to follow. Moe Coley M.D. DR: GIOVANNI JOB#: [id number] CC:
[2018-10-19] MEDS: NS w/KCl 20mEq 1000ml 1,000 ML IV SCH ×2 (01:40→05:50)
[2018-10-19 04:00] VITALS: BP 140/75
[2018-10-19 07:15] LABS: ANION GAP 9 mmol/L (5-15); BLOOD UREA NITROGEN 19 mg/dL (7-18); CALCIUM 8.8 MG/DL (8.5-10.1); CARBON DIOXIDE 25 MMOL/L (21-32); CHLORIDE 107 MMOL/L (98-107); CHOLESTEROL 199 MG/DL (< 200); CREATININE 0.5 MG/DL (0.55-1.30); HDL CHOLESTEROL 55 MG/DL (40-60); POTASSIUM 3.7 MMOL/L (3.5-5.1); SODIUM 141 MMOL/L (136-145); TRIGLYCERIDES 86 MG/DL (30-150)
[2018-10-19 08:00] VITALS: BP 152/75
--- NOTE | 2018-10-19 08:01 | NUR ---
HAND-OFF: Report given to Luca Babin RN. Patient in bed in stable condition. Endorsed plan of care.
--- NOTE | 2018-10-19 08:03 | NUR ---
NURSE NOTES: Received report from Froilan SALVADOR. in bed AAO X3 eating breakfast. No complaints of acute pain or distress at this time. monitoring tech in place per protocol and on RA with no S/S of respiratory distress. Safety precautions in place; siderails up X3, call light within reach, bed in lowest position, brakes and alarm on at all times. Needs and wants anticipated and attended. Will continue with the plan of care.
[2018-10-19] MEDS: Tums 500mg ORAL SCH ×3 (09:56→17:12)
[2018-10-19] MEDS: Aspirin Baby 81mg ORAL SCH (09:57)
[2018-10-19] MEDS: Vitamin D 1000 IU Tab ORAL SCH (09:57)
[2018-10-19] MEDS: Heparin 5000 units/ml inj SUBQ SCH ×2 (09:58→20:44)
[2018-10-19 12:00] VITALS: BP 124/70
--- NOTE | 2018-10-19 13:27 | NUR ---
P.T NOTE: P.T EVALUATION COMPLETED AND TREATMENT INITIATED. PLEASE REFER TO P.T EVALUATION FOR CURRENT FUNCTIONAL STATUS. PATIENT IS ALERT, O X 4 , PLEASANT AND COOPERATIVE. PATIENT DENIED C/O PAIN BUT GENERALIZED WEAKNESS. PATIENT CURRENTLY REQUIRE SBA X 1 FOR BED MOBILITY AND TRANSFER ACTIVITIES. PATIENT AMBULATED AND TOLERATED 150 FEET NO AD HOWEVER NEEDED SBA X 1 PATIENT TENDS TO HOLD ONTO STABLE OBJECTS, I.E WALL, RAILS , BED HOWEVER NO LOB. PATIENT C/O MILD FATIGUE BUT NO SOB. PATIENT WILL BENEFIT FROM SKILLED P.T SERVICE DURING STAY TO IMPROVE HER STRENGTH AND ENDURANCE TO INCREASE MOBILITY INDEPENDENCE AND RETURN TO PLOF. PATIENT WOULD BENEFIT FROM [facility] TO FACILITATE SAFE HOUSEHOLD AND COMMUNITY AMBULATION.
--- NOTE | 2018-10-19 14:28 | NUR ---
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 98.1 HR 50 RR 18 B/P 152/75 RA 98% BUN 19 IS: KCL IV @ 75ML/HR SYNTHROID PO PT EVAL TELE STATUS
[2018-10-19 16:00] VITALS: BP 116/64
--- NOTE | 2018-10-19 19:29 | NUR ---
HAND-OFF: Report given to Froilan, Endorsed plan of care.
--- NOTE | 2018-10-19 19:35 | NUR ---
NURSE NOTES: Received report from Luca Babin RN. Patient in bed AAO X3 with friend at bedside. No complaints of acute pain or distress at this time. Kept clean, dry, and comfortable in bed. threat monitoring analyst in place per protocol and on RA with no S/S of resp distress. Safety precautions in place; siderails X3 up, call light within reach, bed in lowest position, brakes and alarm on at all times. Needs and wants anticipated and attended. Will continue plan of care and monitor for any changes noted.
[2018-10-19 20:00] VITALS: BP 139/72
[2018-10-19] MEDS: Donepezil 10mg tab ORAL SCH (20:44)
[2018-10-20] VITALS: BP 159/87
--- NOTE | 2018-10-20 02:15 | Progress Note ---
DATE: 10/19/2018 CARDIOLOGY AND INTERNAL MEDICINE PROGRESS NOTE SUBJECTIVE: The patient feels better. Less dizziness. She does have some imbalance and was seen by therapist. Blood pressure range stable. Nonorthostatic to ____ exam. OBJECTIVE: LUNGS: Clear. CARDIAC: Regular. ABDOMEN: Soft. EXTREMITIES: No edema. IMPRESSION: 1. Acute cerebellar infarct. 2. Ataxia. 3. Vertigo. 4. ____ with elevated TSH of 4.6. 5. Sinus bradycardia. 6. Asymptomatic. PLAN: 1. Continue cardiac monitoring. 2. Had thyroid hormone. 3. Continued therapy. 4. Anti-platelet and anti-lipid drugs. Moe Coley M.D. DR: JAMILA JOB#: [id number] CC:
[2018-10-20 04:00] VITALS: BP 147/71
[2018-10-20] MEDS: NS w/KCl 20mEq 1000ml 1,000 ML IV SCH ×2 (04:27→16:49)
--- NOTE | 2018-10-20 07:23 | NUR ---
HAND-OFF: Report given to Luca Babin RN. Patient in stable condition, endorsed plan of care.
--- NOTE | 2018-10-20 07:25 | NUR ---
NURSE NOTES: Received report from Froilan SALVADOR. in bed AAO X3. No complaints of acute pain or distress at this time. pvc monitor in place per protocol and on RA with no S/S of respiratory distress. Safety precautions in place; siderails up X3, call light within reach, bed in lowest position, brakes and alarm on at all times. Needs and wants anticipated and attended. Will continue with the plan of care.
[2018-10-20 08:00] VITALS: BP 134/71
[2018-10-20] MEDS: Aspirin Baby 81mg ORAL SCH (08:37)
[2018-10-20] MEDS: Vitamin D 1000 IU Tab ORAL SCH (08:37)
[2018-10-20] MEDS: Tums 500mg ORAL SCH ×3 (08:37→16:49)
[2018-10-20] MEDS: Heparin 5000 units/ml inj SUBQ SCH ×2 (08:38→20:54)
[2018-10-20 12:00] VITALS: BP 126/77
--- NOTE | 2018-10-20 13:41 | Diagnostic Imaging Report ---
APPROVED REPORT CPT Code: 99224 Vascular Symptoms Dizziness and Vertigo Doppler Spectral Velocity Analysis RightLeft BILATERAL: CCA/BULB - Imaging reveals irregular, minimal plaque (05-10%) in both carotid internal and external carotid arteries. The Doppler spectral flow analysis is within normal limits throughout the internal and external carotid arteries. SUBCLAVIAN/VERTEBRAL - The subclavian and vertebral arteries are patent, without evidence of stenosis or steal, bilaterally.
[2018-10-20 16:00] VITALS: BP 132/88
--- NOTE | 2018-10-20 19:17 | NUR ---
HAND-OFF: Report given to MODESTO Orellana. Patient is in stable condition.
--- NOTE | 2018-10-20 19:42 | NUR ---
NURSE NOTES: Received report from Diego SALVADOR. Patient is sitting in chair, no active s/s cardiac, respiratory distress noticed at this time. Patient AOx4, SB on library monitor. IV on left Hand 20G, asymptomatic, patent, intact running NS + 20 KCL @ 75/hr. Pt denies any pain. Bed in lowest position, side rails padded up x3, call light within reach, bed alarm on. Will continue to monitor.
[2018-10-20 20:00] VITALS: BP 143/85
[2018-10-20] MEDS: Donepezil 10mg tab ORAL SCH (20:53)
--- NOTE | 2018-10-20 22:00 | Progress Note ---
DATE: 10/20/2018 SUBJECTIVE: The patient feels well and stronger. No dizziness. Ambulating further with less unsteadiness. OBJECTIVE: VITAL SIGNS: Afebrile. Blood pressure 132/88, pulse 56, and respirations 18. Monitor sinus and sinus bradycardia. No pauses. LUNGS: Clear. CARDIAC: Regular. Normal S1, S2. ABDOMEN: Soft. EXTREMITIES: No edema. NEUROLOGIC: Intact with mild ataxia. IMPRESSION: 1. Acute cerebellar infarct. 2. Sinus node disease with bradycardia, improved and asymptomatic. 3. Hypertension. 4. Chronic anemia. 5. Iron deficiency anemia. 6. History of gastritis. PLAN: The patient does not want to go to a senior care facility and her therapy needs are . She will remain on thyroid replacement for her mild hypothyroidism and her cardiovascular parameters monitored closely as she rehabilitate. Moe Coley M.D. DR: MARYSOL JOB#: [id number] CC:
[2018-10-21] VITALS: BP 134/88
[2018-10-21 04:00] VITALS: BP 147/78
[2018-10-21] MEDS: NS w/KCl 20mEq 1000ml 1,000 ML IV SCH (06:45)
--- NOTE | 2018-10-21 07:20 | NUR ---
NURSE NOTES: Received report from MODESTO Orellana. Observed patient in bed, awake, alert, and verbally responsive, Maori speaking. On room air, no respiratory distress noted at this time. Right posterior wrist 22g intact and patent with IV fluids infusing at prescribed rate. Denies pain/discomfort at this time. Safety precautions in place. Be locked, alarmed, and in lowest position, side rails up x3, and call light left within reach. Instructed to call for assistance, verbalized understanding. Will continue to monitor.
[2018-10-21 08:00] VITALS: BP 158/77
[2018-10-21] MEDS: Tums 500mg ORAL SCH ×2 (08:14→13:00)
[2018-10-21] MEDS: Vitamin D 1000 IU Tab ORAL SCH (08:14)
[2018-10-21] MEDS: Aspirin Baby 81mg ORAL SCH (08:14)
[2018-10-21] MEDS: Heparin 5000 units/ml inj SUBQ SCH (08:15)
--- NOTE | 2018-10-21 10:52 | NUR ---
NURSE NOTES: Called and left a message for Dr Coley for clarification of discharge orders for patient. Spoke with Judy, awaiting for call back.
[2018-10-21 12:00] VITALS: BP 119/72
[2018-10-21] MEDS ORDERED: PRAVASTATIN SOD10 M1 ORAL (12:53)
[2018-10-21] MEDS ORDERED: ASPIRIN-LOW81 MG ORAL (12:53)
[2018-10-21] MEDS ORDERED: LEVOTHYROXINE125 MCG ORAL (12:54)
--- NOTE | 2018-10-21 13:25 | NUR ---
NURSE NOTES: Patient was discharged to home. 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 Patient in stable condition.
--- NOTE | 2018-10-22 | Progress Note ---
DATE: 10/21/2018 INTERNAL MEDICINE PROGRESS NOTE SUBJECTIVE: The patient was seen and evaluated. She is ambulatory. She has minimal dizziness. Vitals are stable. Discharge planning was discussed. Outpatient care including physical therapy at home discussed as well. Discharge medication regimen was updated and discussed with the patient. See discharge summary for full details. Moe Coley M.D. DR: Malachi JOB#: [id number] CC:
--- NOTE | 2018-10-22 15:05 | NUR ---
*-* INSURANCE *-* ALL CLINICALS HAVE BEEN FAXED TO: [facility]ODA F: [phone]
--- NOTE | 2018-10-22 16:38 | Discharge Summary ---
Discharge Summary Discharge Summary _ DATE OF ADMISSION: 10/17/2018 DATE OF DISCHARGE: 10/21/2018 DISCHARGED BY: REASON FOR ADMISSION: 82 years old female with past medical history of chronic kidney disease, cerebrovascular disease with dementia, hyperlipidemia, hypertension, atherosclerotic cardiovascular disease, hiatal hernia, iron deficiency anemia and gastritis, lives at the [facility] . She presented to emergency department complaining of double vision, lightheadedness, weakness and headache. Symptoms started earlier that morning. Patient denied any head trauma, falls or loss of consciousness. No seizures, no focal weakness. No change in medication regimen. Upon evaluation in emergency department vital signs revealed pulse rate of 50 , blood pressure 147/74, pulse oximetry was stable on room air Laboratory work-up revealed no leukocytosis, stable hemoglobin and hematocrit. Stable electrolytes and renal parameters. Albumin 3.3. Troponin negative. EKG reveals sinus bradycardia in 40s. CT of the head demonstrated no acute intracranial bleeding, mass-effect or edema. Mild atrophy of the brain was noted. Chest x-ray demonstrated hiatal hernia, but no acute findings. Outpatient echocardiogram revealed preserved ejection fraction and mild degenerative valve disease. Patient admitted to monitored floor for further management. HOSPITAL COURSE: Patient admitted to monitored floor. Patient started on hydration. MRI of the brain demonstrated multiply, less than 1 cm acute infarcts/acute small vessel infarcts, involving the cerebellum, mostly within the left cerebellar hemisphere with one focus on the right. No associated hemorrhage, significant edema or mass-effect. Generalized atrophy of the brain noted. Carotid duplex demonstrated irregular minimal plaque 5 to 10% in both carotid internal and external carotid arteries. Otherwise unremarkable findings. Lipid panel revealed elevated LDL 119. TSH slightly elevated 4.625. Antiplatelet therapy with aspirin and statin initiated. Patient was working with physical therapist. Fall precaution maintained. Patient started on thyroid replacement with Synthroid. Repeat thyroid function test in 1 month. DVT prophylaxis provided. Blood pressure was closely monitored and remained stable. Patient remained in sinus bradycardia on telemetry floor , but was completely asymptomatic. No blackouts , no syncope, no dizziness. Hemoglobin and hematocrit were closely monitored and remained stable. Patient declined to go to the long-term facility Patient was ambulated . Vital signs were stable. Patient preferred to go home and have outpatient care at home, including physical therapist. 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 DISCHARGE INSTRUCTIONS: Patient was discharged home . Follow up with primary care provider in one week. I have been assigned to dictate discharge summary for this account. I was not involved in the patient's management. Leonela Sandoval NP Oct 22, 2018 16:38
== END 2018-10-21 13:25 | disposition home or self-care (01) | DRG 45 ==
LOC: EDBEDREQ 16:36 → EMR 16:56 → 2E 19:24 → EDBEDREQ 20:06
DX: I63.9 Cerebral infarction, unspecified (principal); I49.5 Sick sinus syndrome; E44.1 Mild protein-calorie malnutrition; F01.50 Vascular dementia, unspecified severity, without behavioral disturbance, psychotic disturbance, mood disturbance, and anxiety; G44.209 Tension-type headache, unspecified, not intractable; K44.9 Diaphragmatic hernia without obstruction or gangrene; K29.50 Unspecified chronic gastritis without bleeding; R27.0 Ataxia, unspecified; I10 Essential (primary) hypertension; E03.9 Hypothyroidism, unspecified; D50.9 Iron deficiency anemia, unspecified
CPT/HCPCS: 36415; 70450; 70553; 71045; 80048; 80053; 80061; 82550; 82553; 83735; 84443; 84484; 85025; 85610; 85730; 93005; 93880; 96374; 99285; A9585